=== PATIENT | male | born 1950 | race Caucasian/White ===

== ENCOUNTER 2024-10-02 13:37 | Outpatient (CLI) | payer MEDICARE, SELFPAY | END 2024-10-02 13:38 | disposition home or self-care (01) | PROVIDERS: Visit Provider Family Medicine | DX: S59.911A Unspecified injury of right forearm, initial encounter (principal); V29.408A Other motorcycle driver injured in collision with unspecified motor vehicles in traffic accident, initial encounter; Y92.410 Unspecified street and highway as the place of occurrence of the external cause | CPT/HCPCS: A0425; A0427 ==